=== PATIENT | female | born 1975 | race Caucasian/White ===

== ENCOUNTER 2017-10-31 08:14 | Emergency (ER) | payer OTHER ==
[~2017-10-31] VITALS: Ht 180.3 cm; Wt 90.7 kg
[~2017-10-31 08:14] MED LIST: HYDR-971 PO; ONDA4TAB10 PO
--- NOTE | 2017-10-31 08:56 | EKG ---
[address] [address] Test Date: 2017-10-31 Test Time: 08:52:19 Pat Name: DENISE TORRES Department: Room: Gender: F Surgery Tech: : 1975 Requested By: RANDY SHEARER Order Number: [id number] Reading MD: Measurements Intervals [place] Rate: 103 P: 40 MD: 142 QRS: 2 QRSD: 76 T: 5 QT: 340 QTc: 447 Interpretive Statements SINUS TACHYCARDIA NO SPECIFIC ECG ABNORMALITIES RI6.01 No previous ECG available for comparison
[2017-10-31] MEDS ORDERED: ONDANSETRON PF 4 MG/2 ML VIAL. IV ONE (09:00)
[2017-10-31] MEDS ORDERED: IPRATRPIUM/ALBUTEROL 0.5/2.5MG 3 ML NEBU. NEB ONE (09:00)
[2017-10-31] MEDS ORDERED: IV NORMAL SALINE 1,000ML 1,000 ML IV SCH (09:00)
[2017-10-31] MEDS ORDERED: MECLIZINE 12.5 MG TABLET. PO ONE (09:00)
[2017-10-31 09:04] LABS: BASO % 1 % (0-3); EOS % 1 % (0-3); HEMATOCRIT 41.8 % (36.0-47.0); HEMOGLOBIN 14.8 g/dL (12.0-15.5); LYMPH # 1.1 x10^3/uL (1.0-4.8); LYMPH % 23 % (24-48); MEAN CORPUSCULAR HEMOGLOBIN 32 pg (25-35); MEAN CORPUSCULAR HGB CONC 35 g/dL (31-37); MEAN CORPUSCULAR VOLUME 89 fL (79-100); MONO # 0.6 x10^3/uL (0.0-1.1); MONO % 12 % (0-9); NEUT # 3.2 x10^3uL (1.8-7.7); NEUT % 64 % (31-73); PLATELET COUNT 147 x10^3/uL (140-400); RED BLOOD COUNT 4.68 x10^6/uL (3.50-5.40); RED CELL DISTRIBUTION WIDTH 12.2 % (11.5-14.5)
[2017-10-31 09:09] LABS: AMPHETAMINE/METHAMPHETAMINE NEG (NEG); BARBITURATES NEG (NEG); BENZODIAZEPINES NEG (NEG); CANNABINOIDS NEG (NEG); COCAINE NEG (NEG); METHADONE NEG (NEG); OPIATES NEG (NEG); PHENCYCLIDINE NEG (NEG)
[2017-10-31 09:13] LABS: CALCIUM 8.6 mg/dL (8.5-10.1); CREATININE 0.5 mg/dL (0.6-1.0); GFR 137.4; POTASSIUM 3.5 mmol/L (3.5-5.1)
[2017-10-31 09:15] LABS: BILIRUBIN,URINE NEG (NEG); CLARITY,URINE CLEAR; COLOR,URINE YELLOW; GLUCOSE,URINE NEG (NEG)
[2017-10-31 09:16] LABS: BACTERIA,URINE FEW /HPF (0-FEW); NITRITE,URINE NEG (NEG); SQUAMOUS EPITHELIAL CELL,UR FEW /LPF; UROBILINOGEN,URINE 4 mg/dL (0.2 mg/dL)
[2017-10-31] MEDS ORDERED: ONDA4TAB10 PO (09:29)
[2017-10-31] MEDS ORDERED: PRED20TA PO (09:29)
[2017-10-31] MEDS ORDERED: MECL25TA3 PO (09:29)
[2017-10-31] MEDS ORDERED: ALBU8.5H8 INH (09:29)
--- NOTE | 2017-10-31 09:33 | PHYS DOC ---
General Chief Complaint: DIZZY/LIGHT HEADED Stated Complaint: DIZZINESS Time Seen by MD: 08:21 Source: patient Exam Limitations: no limitations Problems: History of Present Illness Initial Comments 41-year-old female comes to the ED complaining of cough and dizziness. Patient states that she's had a nonproductive cough for the past 3 days worse at night. She's had asthma symptoms in the past and feels current symptoms are related. At times she can feel some wheezing and dyspnea on exertion no shortness of breath at rest. Denies any chest pain. Patient admits that with the cough she hasn't been eating and drinking well. For the past 24 hours states that she's had some dizziness. She describes dizziness as a feeling that her legs are heavy and she feels slightly unsteady. No sensation of rotation of herself or the room, no induced nausea and no ear symptoms. Denies fever chills sweats or body aches no bowel or bladder symptoms Timing/Duration: other Severity: moderate Modifying Factors: worse with movement, improves with rest Associated Symptoms: cough, malaise, other Allergies: Coded Allergies: No Known Drug Allergies (Unverified , 07/09/16) Past Medical History Medical History: diabetes, other Surgical History: noncontributory Psychosocial History: anxiety Social History Smoker: non-smoker Alcohol: occasionally Drugs: none Review of Systems Constitutional: denies chills, denies diaphoresis, denies fever, malaise EENTM: denies eye pain, denies ear pain, denies ear discharge, denies nose pain , denies throat pain, denies throat swelling, denies mouth swelling Respiratory: see HPI, cough, wheezing Cardiovascular: denies chest pain, denies palpitations, denies syncope Gastrointestinal: denies abdominal pain, denies diarrhea, denies nausea, denies vomiting Genitourinary: denies dysuria, denies frequency, denies hematuria Musculoskeletal: denies back pain, denies joint swelling, denies neck pain Psychiatric/Neurological: denies headache, denies numbness, denies paresthesia , denies weakness Hematologic/Lymphatic: denies blood clots, denies easy bleeding, denies easy bruising Physical Exam General Appearance: WD/WN, no apparent distress Eyes: bilateral eye normal inspection, bilateral eye PERRL, bilateral eye EOMI Ear, Nose, Throat: hearing grossly normal, normal ENT inspection (mildly dry membranes), normal pharynx Neck: non-tender, supple Respiratory: chest non-tender, no respiratory distress, decreased breath sounds , wheezing Cardiovascular: normal peripheral pulses, regular rate, rhythm Gastrointestinal: non tender, soft Back: no CVA tenderness, no vertebral tenderness Extremities: non-tender, normal inspection 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 0930: I rechecked the patient she's feeling much better. Her cough and dizziness have resolved completely with DuoNeb and IV hydration. She is requesting discharge home. EKG: Sinus tachycardia 103 bpm, no ST segment elevation interpreted by me. I discussed activity modification, oral hydration, prescription and over-the- counter medications. Discussed signs and symptoms to monitor as well as indications for urgent return to the department. I discussed PCP follow-up patient's questions were answered to her satisfaction and she expressed agreement and understanding with treatment plan. Departure Time of Disposition: 09:30 Disposition: 01 HOME, SELF-CARE Diagnosis: hypovolemia, vertigo, asthma exacerbation Condition: IMPROVED Patient Instructions: Asthma, Adult, Dehydration, Adult, Xeqd-[id number], Vertigo , Ansv-jn-[id number] Additional Instructions: Please review the patient education materials given by ED staff. Work excuse a few days if needed. Aggressive hydration with Gatorade and water. Prescriptions: Prednisone, albuterol MDI, meclizine, Zofran ODT While taking prednisone be sure to monitor urine glucose closely (before each meal and at bedtime) and use sliding scale insulin. Follow-up with your doctor in 3-5 days if not better. Return to ED with new or changing symptoms. RANDY SHEARER DO Oct 31, 2017 09:33
[2017-10-31 09:55] VITALS: BP 135/82
== END 2017-10-31 09:55 | disposition home or self-care (01) ==
LOC: ER 08:14
DX: J45.901 Unspecified asthma with (acute) exacerbation (principal); E86.1 Hypovolemia; R42 Dizziness and giddiness; E11.9 Type 2 diabetes mellitus without complications; F41.9 Anxiety disorder, unspecified
CPT/HCPCS: 36415; 80048; 80307; 81001; 81025; 82947; 83690; 84484; 85025; 93005; 94640; 96361; 96374; 99285; J2405; J7620; J8597; G0479; J7030

== ENCOUNTER 2018-03-12 16:39 | Emergency (ER) | payer OTHER ==
[~2018-03-12 16:39] MED LIST changes: +ALBU8.5H8 INH; +MECL25TA3 PO; +PRED20TA PO
[2018-03-12] MEDS ORDERED: DIPHTH,PERTUSS(ACELL),TET TOX 0.5 ML DISP.SYRIN. VAX IM ONE (17:15)
[2018-03-12] MEDS ORDERED: silver sulfADIAZINE 1% CREAM 50GM JAR. TP ONE (17:15)
[2018-03-12] MEDS ORDERED: NAPROXEN 500 MG TABLET PO ONE (17:15)
[2018-03-12] MEDS ORDERED: SILV20CR14 TP (17:18)
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
[2018-03-12] MEDS ORDERED: NAPR-683 PO (17:20)
[2018-03-12 17:24] VITALS: BP 136/99
== END 2018-03-12 17:24 | disposition home or self-care (01) ==
LOC: ER 16:39
DX: T23.251A Burn of second degree of right palm, initial encounter (principal); T22.211A Burn of second degree of right forearm, initial encounter; F41.9 Anxiety disorder, unspecified; E11.9 Type 2 diabetes mellitus without complications; Z88.5 Allergy status to narcotic agent; X16.XXXA Contact with hot heating appliances, radiators and pipes, initial encounter; Y93.89 Activity, other specified; Y99.8 Other external cause status; Y92.89 Other specified places as the place of occurrence of the external cause
CPT/HCPCS: 16020; 82947; 90471; 90715; 99284-25

== ENCOUNTER 2018-10-25 06:35 | Emergency (ER) | payer OTHER ==
[~2018-10-25] VITALS: Ht 180.3 cm; Wt 95.3 kg
[~2018-10-25 06:35] MED LIST changes: +ALBU2.5V8 INH; -ALBU8.5H8 INH; +HYDR-3165 PO; -HYDR-971 PO; +NAPR-683 PO; +SILV20CR14 TP
[2018-10-25 06:49] VITALS: BP 144/95
[2018-10-25] MEDS ORDERED: KETOROLAC 60 MG/2 ML VIAL. IM ONE (07:00)
--- NOTE | 2018-10-25 07:01 | RAD ---
Three-view nasal bone dated 10/25/2018. No comparison available. CLINICAL INDICATION: Fall on ice. Bloody nose. FINDINGS: 3 views nasal bone show a tiny fragment near the nasal bone tip that could represent a small avulsion fracture. Nasal bones are otherwise intact. There is overlying soft tissue swelling. The paranasal sinuses are grossly clear. IMPRESSION: 1. No evidence of displaced nasal bone fracture. 2. Possible tiny chip fracture near the tip of the nasal bones seen on the lateral view. Electronically signed by: Prosper Medley MD (10/25/2018 6:59 AM) [id number]
[2018-10-25] MEDS ORDERED: NAPR-683 PO (07:23)
--- NOTE | 2018-10-25 07:23 | PHYS DOC ---
Past History Past Medical History: Anxiety, Diabetes Past Surgical History: , Tubal ligation Smoking: Non-smoker Alcohol Use: Occasionally Drug Use: None Adult General Chief Complaint Chief Complaint: NOSEBLEED HPI HPI Patient is a 42 year old female who presents with planing of fall and nose injury. Patient states she was at the work and slipped on ice and landed on her face and injured her nose. Patient denies loss of consciousness, focal neuro deficit, other injuries. Patient states she had nosebleed that stopped spontaneously prior to arrival to ER. Patient rated her pain as a moderate pain. Review of Systems Review of Systems Constitutional: Denies fever or chills [] Eyes: Denies change in visual acuity, redness, or eye pain [] HENT: Denies nasal congestion or sore throat [] Respiratory: Denies cough or shortness of breath [] Cardiovascular: No additional information not addressed in HPI [] GI: Denies abdominal pain, nausea, vomiting, bloody stools or diarrhea [] : Denies dysuria or hematuria [] Musculoskeletal: Denies back pain or joint pain [] Integument: Denies rash or skin lesions [] Neurologic: Denies headache, focal weakness or sensory changes [] Endocrine: Denies polyuria or polydipsia [] All other systems were reviewed and found to be within normal limits, except as documented in this note. Current Medications Current Medications Current Medications Medications (Trade) Dose Ordered Sig/[facility] Start Time Stop Time Status Last Admin Dose Admin Ketorolac Tromethamine (Toradol Im) 60 mg 1X ONCE 10/25/18 07:00 10/25/18 07:01 DC 10/25/18 06:56 60 MG Allergies Allergies Allergies Coded Allergies Type Severity Reaction Last Updated Verified codeine Allergy Unknown 03/12/18 Yes Physical Exam Physical Exam Constitutional: Well developed, well nourished, mild distress, non-toxic appearance. [] HENT: Normocephalic, mild nasal contusion with tenderness without deformity or edema or deviation, no active bleeding, bilateral external ears normal, oropharynx moist, no oral exudates.[] Eyes: PERRLA, EOMI, conjunctiva normal, no discharge. [] Neck: Normal range of motion, no tenderness, supple, no stridor. [] Cardiovascular:Heart rate regular rhythm, no murmur [] Lungs & Thorax: Bilateral breath sounds clear to auscultation [] Skin: Warm, dry, no erythema, no rash. [] Back: No tenderness, no CVA tenderness. [] Extremities: No tenderness, no cyanosis, no clubbing, ROM intact, no edema. [] Neurologic: Alert and oriented X 3, normal motor function, normal sensory function, no focal deficits noted. [] Psychologic: Affect normal, judgement normal, mood normal. [] Current Patient Data Vital Signs Vital Signs Date Time Temp Pulse Resp B/P (MAP) Pulse Ox O2 Delivery O2 Flow Rate FiO2 10/25/18 06:49 97.8 90 18 95 Room Air EKG EKG [] Radiology/Procedures Radiology/[place] [address] IMAGING REPORT Signed PATIENT: DENISE TORRES ACCOUNT: [id number] : 1975 LOCATION: ER AGE: 42 SEX: F EXAM STATUS: REG ER ORD. PHYSICIAN: ADELA GOMEZ MD REASON: fall, injury PROCEDURE: NASAL BONES 3+V Three-view nasal bone dated 10/25/2018. No comparison available. CLINICAL INDICATION: Fall on ice. Bloody nose. FINDINGS: 3 views nasal bone show a tiny fragment near the nasal bone tip that could represent a small avulsion fracture. Nasal bones are otherwise intact. There is overlying soft tissue swelling. The paranasal sinuses are grossly clear. IMPRESSION: 1. No evidence of displaced nasal bone fracture. 2. Possible tiny chip fracture near the tip of the nasal bones seen on the lateral view. Electronically signed by: Prosper Medley MD (10/25/2018 6:59 AM) [facility] DICTATED AND SIGNED BY: PROSPER MEDLEY MD DATE: 10/25/18 0657 CC: ADELA GOMEZ MD; ARBEN SMITH ~ Course & Med Decision Making Course & Med Decision Making Pertinent Imaging studies reviewed. (See chart for details) Evaluation of patient in ER showed female patient with a fall on ice and injury to her nose. Patient had marked contusion of nose without active bleeding or deformity. X-ray did not show acute displaced fracture and there was a questionable fracture of tip of nasal bone. Patient informed about x-ray result and plan of care. Dragon Disclaimer Dragon Disclaimer This electronic medical record was generated, in whole or in part, using a voice recognition dictation system. Departure Departure: Impression: Primary Impression: Facial contusion Additional Impressions: Fall from slipping on ice Closed nondisplaced fracture of nasal bone Disposition: HOME, SELF-CARE (at 0720) Condition: IMPROVED Referrals: ARBEN SMITH (PCP) Patient Instructions: Facial or Scalp Contusion, Nasal Fracture Additional Instructions: Apply ice on the affected area Drink plenty of liquids Follow-up with your primary care physician in 3-5 days Return to ER if not getting better Scripts Naproxen (NAPROSYN) 500 Mg Tablet 500 MG PO BID for pain, #14 TAB Prov: ADELA GOMEZ MD 10/25/18 Problem Qualifiers Primary Impression: Facial contusion Encounter type: initial encounter Qualified Codes: S00.83XA - Contusion of other part of head, initial encounter Additional Impressions: Fall from slipping on ice Encounter type: subsequent encounter Qualified Codes: W00.9XXD - Unspecified fall due to ice and snow, subsequent encounter ADELA GOMEZ MD Oct 25, 2018 07:23
== END 2018-10-25 07:34 | disposition home or self-care (01) ==
LOC: ER 06:35
DX: S02.2XXA Fracture of nasal bones, initial encounter for closed fracture (principal); F41.9 Anxiety disorder, unspecified; E11.9 Type 2 diabetes mellitus without complications; Z88.5 Allergy status to narcotic agent; W00.0XXA Fall on same level due to ice and snow, initial encounter; Y93.89 Activity, other specified; Y92.89 Other specified places as the place of occurrence of the external cause; Y99.0 Civilian activity done for income or pay
CPT/HCPCS: 70160; 96372; 99283; J1885

== ENCOUNTER → 2018-11-15 | Outpatient (CLI) | payer OTHER ==
[2018-10-25 06:49] VITALS: BP 144/95
--- NOTE | 2018-11-15 11:37 | RAD ---
PQRS Compliance Statement: One or more of the following individualized dose reduction techniques were utilized for this examination: 1. Automated exposure control 2. Adjustment of the mA and/or kV according to patient size 3. Use of iterative reconstruction technique CT neck superficial without contrast November 15, 2018 INDICATION: Fall 3 weeks ago. Check nasal bone and injured the right orbit. COMPARISON: Nasal bone radiograph October 25, 2018 TECHNIQUE: Multiple axial CT images of the maxillary facial structures were obtained without intravenous contrast. Coronal and sagittal reformats are provided. FINDINGS: Osseous orbits are intact. Globes are spherical and contour. Extraocular muscles appear intact. There is no lens dislocation. The zygoma is intact. There is mild mucosal thickening of the left maxillary sinus. Ostiomeatal units are widely patent. No significant deformity of the nasal bones is identified. The nasal septum is minimally deviated to the right. Sella and skull base appear intact. Clivus is intact. Maxilla and mandible are intact. There is metallic density in the right maxilla, likely from prior dental implant. Soft tissues of the maxilla facial structures appear intact. IMPRESSION: No acute fracture of the maxilla facial structures is identified. No significant deformity of the nasal bones. Mild mucosal thickening in the left maxillary sinus. Electronically signed by: Verónica Steen MD (11/15/2018 11:35 AM) [id number]
== END | disposition home or self-care (01) ==
LOC: CT 10:48
PROVIDERS: ATTEND Physician Assistant Medical
DX: S05.91XA Unspecified injury of right eye and orbit, initial encounter (principal); S09.92XA Unspecified injury of nose, initial encounter; X58.XXXA Exposure to other specified factors, initial encounter; Y93.89 Activity, other specified; Y92.89 Other specified places as the place of occurrence of the external cause; Y99.8 Other external cause status
CPT/HCPCS: 70486

== ENCOUNTER → 2019-03-13 | Outpatient (CLI) | payer OTHER ==
--- NOTE | 2019-03-15 15:55 | RAD ---
EXAM: DIGITAL SCREEN BILAT W/CAD HISTORY: routine screening evaluation. COMPARISON: None baseline Bilateral full field craniocaudal and mediolateral oblique images were obtained using digital technique. This study was interpreted with the benefit of Computerized Aided Detection (CAD). Breast Density: The breast parenchyma is primarily fatty replaced. Breast parenchyma level density A. FINDINGS: Benign calcifications are present. No suspicious masses, microcalcifications or architectural distortion is present to suggest malignancy in either breast. The visualized axillae are unremarkable. IMPRESSION: No mammographic evidence of malignancy. BI-RADS CATEGORY: 2 BENIGN FINDING(S) RECOMMENDED FOLLOW-UP: 12M 12 MONTH FOLLOW-UP Annual screening mammography is recommended, unless clinically indicated sooner based on symptoms or change in physical exam. PQRS compliance statement: Patient information was entered into a reminder system with a target due date for the next mammogram. Mammography is a sensitive method for finding small breast cancers, but it does not detect them all and is not a substitute for careful clinical examination. A negative mammogram does not negate a clinically suspicious finding and should not result in delay in biopsying a clinically suspicious abnormality. "Our facility is accredited by the [employer] Mammography Program." MTDD
== END | disposition home or self-care (01) ==
LOC: MAMMO 11:19
PROVIDERS: ATTEND Physician Assistant Medical
DX: Z12.31 Encounter for screening mammogram for malignant neoplasm of breast (principal); N64.89 Other specified disorders of breast
CPT/HCPCS: 77067

== ENCOUNTER → 2019-09-05 | Outpatient (CLI) | payer OTHER ==
[~2019-09-05] MED LIST changes: +MECL-75 PO; -MECL25TA3 PO
--- NOTE | 2019-09-05 12:04 | RAD ---
EXAM: Left hand, 3 views. HISTORY: Pain. Fall. COMPARISON: None. FINDINGS: 3 views of the left hand are obtained. There is no fracture, dislocation or subluxation. IMPRESSION: No acute osseous finding. Electronically signed by: Cristina Lord MD (09/05/2019 12:01 PM) [facility]
== END | disposition home or self-care (01) ==
LOC: PMG 11:06
PROVIDERS: ATTEND Physician Assistant Medical
DX: M79.642 Pain in left hand (principal)
CPT/HCPCS: 73130

== ENCOUNTER → 2021-06-29 | Outpatient (CLI) | payer OTHER ==
--- NOTE | 2021-06-29 16:14 | RAD ---
XR FACIAL BONES COMPLETE 3+ VIEWS Clinical indications: Reason: FACIAL TRAUMA / Spl. Instructions: / History: Findings: The orbits are intact. There is no opacification or air-fluid levels of the paranasal sin uses. Nasal bones and nasal spine are intact. No significant nasal septal deviation is seen. No fract ure of the mandible is seen. No lytic process is seen. IMPRESSION: No acute osseous abnormality is evident. Electronically signed by: Magdy Breaux MD (06/29/2021 4:11 PM) [id number]
== END ==
LOC: RAD 15:36
PROVIDERS: ATTEND Nurse Practitioner Family
DX: S09.93XA Unspecified injury of face, initial encounter (principal); X58.XXXA Exposure to other specified factors, initial encounter; Y93.89 Activity, other specified; Y92.89 Other specified places as the place of occurrence of the external cause; Y99.8 Other external cause status
CPT/HCPCS: 70150